=== PATIENT | female | born 1995 | race Caucasian/White ===

== ENCOUNTER 2016-08-30 20:22 | Emergency (ER) | payer MEDICAID ==
[2016-08-30] MEDS ORDERED: LORazepam 1 MG TAB ONE (21:29)
[2016-08-30] MEDS ORDERED: LORazepam 1 MG TAB PO ONE (21:31)
--- NOTE | 2016-08-30 21:33 | EDPHY ---
H & P Stated Complaint: detoxing from heroin /meth and herpes outbreak Time Seen by Provider: 08/30/16 20:55 HPI/ROS: CHIEF COMPLAINT: Agitation after using methamphetamine, also complains of genital herpes outbreak HISTORY OF PRESENT ILLNESS: The patient presents to the ED with complaints of mild agitation and anxiety after using methamphetamine. She also is complaining of a genital herpes outbreak. The patient denies suicidal or homicidal ideation. The patient [facility]. The patient denies any additional acute medical complaints such as fever, cough or congestion. The patient denies any auditory or visual hallucinations. The patient denies abdominal pain, chest pain, difficulty breathing, headache or focal neurologic symptoms. REVIEW OF SYSTEMS: A comprehensive 10 point review of systems is otherwise negative aside from elements mentioned in the history of present illness. - Personal History LMP (Females 10-55): 8-14 Days Ago Current Tetanus/Diphtheria Vaccine: Yes Current Tetanus Diphtheria and Acellular Pertussis (TDAP): Yes - Medical/Surgical History Hx Asthma: No Hx Chronic Respiratory Disease: No Hx Diabetes: No Hx Cardiac Disease: No Hx Renal Disease: No Hx Cirrhosis: No Hx Alcoholism: No Hx HIV/AIDS: No Hx Splenectomy or Spleen Trauma: No Other PMH: heroin /meth abuse - Social History Smoking Status: Current every day smoker Constitutional: Initial Vital Signs Temperature (C) 36.4 C 08/30/16 20:46 Heart Rate 85 08/30/16 20:46 Respiratory Rate 18 08/30/16 20:46 Blood Pressure 132/79 H 08/30/16 20:46 O2 Sat (%) 98 08/30/16 20:46 O2 Delivery Mode Room Air Allergies/Adverse Reactions: No Known Allergies Allergy (Unverified 08/30/16 20:46) Home Medications: Medication Instructions Recorded Acyclovir [Zovirax 400 mg (*)] 400 mg PO TID #21 tab 08/30/16 Medical Decision Making ED Course/Re-evaluation: The patient was given a 1 mg tablet of Ativan for mild anxiety. She is provided a prescription for acyclovir. The patient does not meet criteria for 72 hour mental health hold. The patient will be discharged from the emergency department and return to the [facility]. The patient was given a prepack of Librium per the request of the [facility] for assistance with her narcotic withdrawal. - Data Points Medications Given: Discontinued Medications Chlordiazepoxide (Librium 25 Mg Prepack#6) 1 btl TAKEHOME EDNOW ONE Stop: 08/30/16 21:55 Last Admin: 08/30/16 21:57 Dose: 1 btl Lorazepam (Ativan) 1 mg PO EDNOW ONE Stop: 08/30/16 21:32 Last Admin: 08/30/16 21:32 Dose: 1 mg Departure - Departure Disposition: Home, Routine, Self-Care Instructions: Chlordiazepoxide (By mouth), Narcotic Abuse (ED) Referrals: [facility] [Other] - As per Instructions Prescriptions: Acyclovir [Zovirax 400 mg (*)] 400 mg PO TID #21 tab
[2016-08-30] MEDS ORDERED: CHLORDIAZEPOXIDE 25MG PREPK#6 BTL TAKEHOME ONE (21:54)
[2016-08-30 22:15] VITALS: BP 127/76; PULSE 84; RESP 16; TEMP 98.1; O2SAT 99
== END 2016-08-30 22:15 | disposition home or self-care (01) ==
DX: F19.10 Other psychoactive substance abuse, uncomplicated (principal); A60.09 Herpesviral infection of other urogenital tract; F17.200 Nicotine dependence, unspecified, uncomplicated

== ENCOUNTER 2016-12-27 21:57 | Emergency (ER) | payer MEDICAID ==
--- NOTE | 2016-12-27 22:38 | EDPHY ---
H & P Smoking Status: Current every day smoker Time Seen by Provider: 12/27/16 22:31 HPI/ROS: CHIEF COMPLAINT: Left-sided abdominal pain HISTORY OF PRESENT ILLNESS: Patient has been incarcerated for the last 18 days. She has a history of heroin and methamphetamine but has been clean for the last 2 and half weeks. She presents with left lower abdominal pain for the last 4 days which she says radiates to her back associated with nausea and vomiting for the last 3 hours. No coffee-ground emesis or hematemesis. No urinary or vaginal symptoms. No injury fall or trauma. Denies . Symptoms moderate tonight. Not better worse with oral intake. REVIEW OF SYSTEMS: Eye: no change in vision ENT: no sore throat Cardiac: no chest pain or syncope Pulmonary: no cough or SOB Abdomen: HPI Musculoskeletal: HPI Skin: no rash Neuro: no headache Constitutional: no fever : no urinary symptoms A comprehensive 10 point review of systems is otherwise negative aside from elements mentioned in the history of present illness. PAST MEDICAL HISTORY: Hospitalized for pyelonephritis 6 weeks ago at [facility]. Social history: Recent incarceration as above, no recent alcohol. General Appearance: Alert and conversant, cooperative. Eyes: No scleral icterus. ENT, Mouth: Normal mucous membranes. Respiratory: Normal respiratory effort, breath sounds equal, lungs are clear to auscultation. Cardiovascular: Regular rate and rhythm. Noted to be tachycardic at over 100 beats per minute. Gastrointestinal: Left lower quadrant abdominal tenderness without rebound or guarding. Neurological: Alert and oriented x3. Normally conversant. Face symmetric, normal movement and sensation in all extremities. Skin: Warm and dry, no rashes. No zoster. Musculoskeletal: No peripheral edema and no joint swelling. Psychiatric: Not agitated. Emergency Department course/MDM: Normal saline 1 L IV. Zofran 4 mg IV. We agreed that she would have her abdominal pain treated without opioid medications. Plan for CBC chemistry and test, urinalysis, ultrasound of her left side of her pelvis and kidneys. No upper abdominal pain or tenderness. 2300: Signed out to Dr. Liao with labs and ultrasound pending. (Cyrus Aranda) Constitutional: Initial Vital Signs Temperature (C) 36.7 C 12/27/16 21:59 Heart Rate 126 H 12/27/16 21:59 Respiratory Rate 20 12/27/16 21:59 Blood Pressure 136/85 H 12/27/16 21:59 O2 Sat (%) 96 12/27/16 21:59 O2 Delivery Mode Room Air Allergies/Adverse Reactions: No Known Allergies Allergy (Unverified 08/30/16 20:46) Home Medications: Medication Instructions Recorded Acyclovir [Zovirax 400 mg (*)] 400 mg PO TID #21 tab 08/30/16 Polyethylene Glycol 3350 [Miralax 17 gm PO DAILY #2 pkt 12/28/16 17 gm (*)] Medical Decision Making - Diagnostics Imaging Results: Imaging Impressions Pelvic/Renal Ultrasound 12/27/16 22:36 Impression: 1. Normal ovaries. No ovarian cyst or torsion. 2. Normal uterus. Findings discussed with Emergency Department physician, Dr. Liao at 2016 23:53. ED Course/Re-evaluation: 1206AM: Ultrasound reported to me of the kidneys and ovaries are normal. Unremarkable ultrasound. 1221AM: I did go and re-evaluate the patient she is resting comfortably. Her abdomen is soft nontender. She is feeling better. Ultrasound is unremarkable. Blood work reviewed is unremarkable. She would like to go home. She understands return to the ER she develops worsening abdominal pain fever vomiting. MiraLax prescription provided. (Donovan Liao) Differential Diagnosis: Differential considered including but not limited to pyelonephritis, UTI, ovarian torsion, ovarian cyst, ectopic. (Cyrus Aranda) - Data Points Laboratory Results: Laboratory Results 12/27/16 23:05 12/27/16 23:05 12/27/16 12/27/16 12/27/16 23:05 23:05 23:05 WBC 9.68 10^3/uL H 10^3/uL (3.80-9.50) RBC 4.33 10^6/uL 10^6/uL (4.18-5.33) Hgb 12.6 g/dL g/dL (12.6-16.3) Hct 39.4 % % (38.0-47.0) MCV 91.0 fL fL (81.5-99.8) MCH 29.1 pg pg (27.9-34.1) MCHC 32.0 g/dL L g/dL (32.4-36.7) RDW 14.2 % % (11.5-15.2) Plt Count 306 10^3/uL 10^3/uL (150-400) MPV 10.4 fL fL (8.7-11.7) Neut % (Auto) Not Reported Lymph % (Auto) Not Reported [place] % (Auto) Not Reported Eos % (Auto) Not Reported Baso % (Auto) Not Reported Nucleat RBC Rel Count 0.0 % % (0.0-0.2) Absolute Neuts (auto) Not Reported Absolute Lymphs (auto) Not Reported Absolute Monos (auto) Not Reported Absolute Eos (auto) Not Reported Absolute Basos (auto) Not Reported Absolute Nucleated RBC 0.00 10^3/uL 10^3/uL (0-0.01) Immature Gran % Not Reported Seg Neutrophils % 63 % % Lymphocytes % 35 % % Monocytes % 2 % % Immature Gran # Not Reported Absolute Seg Neuts 6.10 10^/uL 10^/uL (1.70-6.50) Absolute Lymphocytes 3.39 10^3/uL H 10^3/uL (1.00-3.00) Absolute Monocytes 0.19 10^3/uL L 10^3/uL (0.30-0.80) RBC/WBC/PLT Morphology NORMAL (NORMAL) Atypical Lymphocytes 1+ H Platelet Estimate ADEQUATE (ADEQ) Sodium 141 mEq/L mEq/L (134-144) Potassium 4.3 mEq/L mEq/L (3.5-5.2) Chloride 106 mEq/L mEq/L (97-110) Carbon Dioxide 22 mEq/l mEq/l (22-31) Anion Gap 13 mEq/L mEq/L (8-16) BUN 26 mg/dL H mg/dL (7-23) Creatinine 0.8 mg/dL mg/dL (0.6-1.0) Estimated GFR > 60 Glucose 86 mg/dL mg/dL (70-100) Calcium 9.9 mg/dL mg/dL (8.5-10.4) Beta HCG, Qual NEGATIVE Urine Color Urine Appearance Urine pH Ur Specific [place] Urine Protein Urine Ketones Urine Blood Urine Nitrate Urine Bilirubin Urine Urobilinogen Ur Leukocyte Esterase Urine Glucose 12/27/16 22:46 WBC RBC Hgb Hct MCV MCH MCHC RDW Plt Count MPV Neut % (Auto) Lymph % (Auto) [place] % (Auto) Eos % (Auto) Baso % (Auto) Nucleat RBC Rel Count Absolute Neuts (auto) Absolute Lymphs (auto) Absolute Monos (auto) Absolute Eos (auto) Absolute Basos (auto) Absolute Nucleated RBC Immature Gran % Seg Neutrophils % Lymphocytes % Monocytes % Immature Gran # Absolute Seg Neuts Absolute Lymphocytes Absolute Monocytes RBC/WBC/PLT Morphology Atypical Lymphocytes Platelet Estimate Sodium Potassium Chloride Carbon Dioxide Anion Gap BUN Creatinine Estimated GFR Glucose Calcium Beta HCG, Qual Urine Color PALE YELLOW Urine Appearance CLEAR Urine pH 5.0 (5.0-7.5) Ur Specific [place] 1.019 (1.002-1.030) Urine Protein NEGATIVE (NEGATIVE) Urine Ketones NEGATIVE (NEGATIVE) Urine Blood NEGATIVE (NEGATIVE) Urine Nitrate NEGATIVE (NEGATIVE) Urine Bilirubin NEGATIVE (NEGATIVE) Urine Urobilinogen NEGATIVE EU EU (0.2-1.0) Ur Leukocyte Esterase NEGATIVE (NEGATIVE) Urine Glucose NEGATIVE (NEGATIVE) Medications Given: Discontinued Medications Sodium Chloride (Ns) 1,000 mls @ 0 mls/hr IV EDNOW ONE; Wide Open PRN Reason: Protocol Stop: 12/27/16 22:37 Last Admin: 12/28/16 00:09 Dose: 1,000 mls Ketorolac Tromethamine (Toradol) 15 mg IVP EDNOW ONE Stop: 12/28/16 00:06 Last Admin: 12/28/16 00:09 Dose: 15 mg Ondansetron HCl (Zofran) 4 mg IVP EDNOW ONE Stop: 12/27/16 22:37 Last Admin: 12/28/16 00:09 Dose: 4 mg Departure - Departure Disposition: Home, Routine, Self-Care Clinical Impression: Abdominal pain Qualifiers: Abdominal location: left lower quadrant Qualified Code(s): R10.32 - Left lower quadrant pain Constipation Qualifiers: Constipation type: other constipation type Qualified Code(s): K59.09 - Other constipation Condition: Good Instructions: Constipation (ED), Acute Abdominal Pain (ED) Additional Instructions: 1. Drink lots of fluids stay well-hydrated. 2. Return to the ER if there is any worsening symptoms questions or concerns Referrals: [facility] [Other] - As per Instructions Prescriptions: Polyethylene Glycol 3350 [Miralax 17 gm (*)] 17 gm PO DAILY #2 pkt
[2016-12-27 23:08] LABS: COLOR PALE YELLOW; LEUKOCYTE ESTERASE,URINE NEGATIVE (NEGATIVE); NITRITE,URINE NEGATIVE (NEGATIVE)
[2016-12-27 23:14] LABS: ADD MORPH? NO; ADD SCAN? YES; FRAGMENT RBC FLAG 0 (0-99); HEMATOCRIT 39.4 % (38.0-47.0); HEMOGLOBIN 12.6 g/dL (12.6-16.3); LEFT SHIFT FLG 0 (0-99); LIPEMIA HEMOLYSIS FLAG 80 (0-99); MEAN CELL HEMOGLOBIN 29.1 pg (27.9-34.1); MEAN PLATELET VOLUME 10.4 fL (8.7-11.7); PLATELET CLUMPS FLAG 0 (0-99); PLATELET COUNT 306 10^3/uL (150-400); RED BLOOD CELL COUNT 4.33 10^6/uL (4.18-5.33); RED CELL DISTRIBUTION WIDTH 14.2 % (11.5-15.2)
[2016-12-27 23:31] LABS: ATYPICAL LYMPHOCYTE FLAG 130 (0-99)
[2016-12-27 23:37] LABS: ANION GAP 13 mEq/L (8-16); CALCIUM 9.9 mg/dL (8.5-10.4); CARBON DIOXIDE 22 mEq/l (22-31); CHLORIDE 106 mEq/L (97-110); CREATININE 0.8 mg/dL (0.6-1.0); GLOMERULAR FILTRATION RATE > 60; GLUCOSE 86 mg/dL (70-100); POTASSIUM 4.3 mEq/L (3.5-5.2); SODIUM 141 mEq/L (134-144)
[2016-12-27 23:59] LABS: ADD DIFF? YES; SCAN POSITIVE
[2016-12-28 00:03] LABS: PLATELET ESTIMATE ADEQUATE (ADEQ)
[2016-12-28] MEDS ORDERED: KETOROLAC 15 MG/1 ML SDV ONE (00:06)
[2016-12-28] MEDS: NS 1,000 ML IV ONE (00:09)
[2016-12-28] MEDS: ONDANSETRON 4 MG/2 ML VIAL IVP ONE (00:09)
[2016-12-28] MEDS: KETOROLAC 15 MG/1 ML SDV IVP ONE (00:09)
[2016-12-28 00:47] VITALS: BP 119/79; PULSE 95; TEMP 98.4; O2SAT 94
[2016-12-28 01:01] VITALS: RESP 18
== END 2016-12-28 00:58 | disposition home or self-care (01) ==
DX: K59.09 Other constipation (principal); F17.200 Nicotine dependence, unspecified, uncomplicated; E86.9 Volume depletion, unspecified
CPT/HCPCS: 96374; J1885; J2405

== ENCOUNTER 2017-01-09 10:32 | Emergency (ER) | payer MEDICAID ==
[2017-01-09 10:38] VITALS: RESP 16; TEMP 98.1
[2017-01-09] MEDS ORDERED: BENZOCAINE UNIT DOSE SPRAY HURRICAINE MM ONE (11:17)
--- NOTE | 2017-01-09 11:35 | EDPHY ---
H & P Stated Complaint: wisdom teeth extraction at [facility] tuesday/now with pain l upper mout HPI/ROS: CHIEF COMPLAINT: Dental pain, wisdom tooth extraction HISTORY OF PRESENT ILLNESS: Patient complains of left upper sided dental pain. She has wisdom teeth removed on at [facility] and [facility]. She was taking [place] post procedure and doing well until this morning. The pain has become worse. At the left upper side of her mouth. She feels though the stitches came out. No purulence but some drainage. No fever chills. No trismus. No difficulty opening closing the mouth. No painful swallowing. No other associated complaints or modifying factors. REVIEW OF SYSTEMS: Ten systems reviewed and are negative unless otherwise noted in the HPI PCP: None. Dentist is [facility] and [facility] SPECIALISTS: None PAST MEDICAL HISTORY: Depression, anxiety, sleep disorder PAST SURGICAL HISTORY: Was not tooth extraction SOCIAL HISTORY: Smoker. Currently lives in a penitentiary house due to previous heroin and methamphetamine addiction. Two months sober from these FAMILY HISTORY: Noncontributory EXAMINATION General Appearance: Alert, no distress Head: normocephalic, atraumatic ENT, Mouth: Mucous membranes moist. Uvula midline. No erythema or edema of the gums. I do not appreciate any dry sockets of the tooth bed. No abscess. No signs of infection. Airway widely patent. No trismus Neck: Normal inspection, supple, non-tender Respiratory: No retractions or distress Cardiovascular: regular rate and symmetric pulses. Neurological: A&O, nonfocal, normal gait Skin: Warm and dry, no rash. No petechiae or purpura. No ecchymosis. Extremities: Nontender, no pedal edema Psychiatric: Mood and affect normal DIFFERENTIAL DIAGNOSES: Including but not limited to postoperative pain, abscess, dry socket, pulpitis, MDM: 11:05 a.m. Dental pain status post wisdom tooth extraction. I do not appreciate any infection or dry socket. Her pain is mild to severe. Dentist is closed today. No acute distress. I will check her prescription history and offered dental block. 11:30 a.m. Dental block is been applied. She is feeling much better at this time. I do not appreciate signs of infection, but asked her sutures came out of the surgical site I will put her on prophylaxis of penicillin. Unable to contact the dentist as they are closed. She will contact them 1st thing in the morning. ED precautions discussed. She is comfortable this plan and discharged home stable condition Source: Patient Exam Limitations: No limitations - Personal History LMP (Females 10-55): Over 28 Days Ago Current Tetanus/Diphtheria Vaccine: Yes Tetanus Vaccine Date: <10 years - Medical/Surgical History Hx Asthma: No Hx Chronic Respiratory Disease: No Hx Diabetes: No Hx Cardiac Disease: No Hx Renal Disease: No Hx Cirrhosis: No Hx Alcoholism: No Hx HIV/AIDS: No Hx Splenectomy or Spleen Trauma: No Other PMH: heroin /meth abuse - Social History Smoking Status: Current every day smoker Constitutional: Initial Vital Signs Temperature (C) 98.1 F 01/09/17 10:35 Heart Rate 117 H 01/09/17 10:35 Respiratory Rate 16 01/09/17 10:35 Blood Pressure 124/95 H 01/09/17 10:35 O2 Sat (%) 98 01/09/17 10:35 O2 Delivery Mode Room Air Allergies/Adverse Reactions: No Known Allergies Allergy (Verified 01/09/17 10:34) Home Medications: Medication Instructions Recorded CLONAZEPAM 01/09/17 Hydrocodon-Acetaminophen 5-325 01/09/17 Ibuprofen 600 mg PO Q8 PRN #15 tablet 01/09/17 Penicillin V Potassium [Pen Vk 500 mg PO Q6H 10 Days tab 01/09/17 500mg (*)] Seroquel 01/09/17 Medical Decision Making - Data Points Medications Given: Discontinued Medications Benzocaine (Hurricaine [place]) 1 each MM EDNOW ONE Stop: 01/09/17 11:18 Last Admin: 01/09/17 11:22 Dose: 1 each Departure - Departure Disposition: Home, Routine, Self-Care Clinical Impression: Pain, dental, S/P wisdom tooth extraction Condition: Good Instructions: Toothache (ED) Additional Instructions: 1. Ibuprofen 600 mg every 8 hours as needed for pain 2. Penicillin VK as prescribed to completion 3. Follow up with dentist for definitive care 4. ED precautions for worsening pain, trismus, fever, purulence Referrals: [facility] [Other] - As per Instructions Prescriptions: Ibuprofen 600 mg PO Q8 PRN #15 tablet PRN Reason: Pain, Mild Penicillin V Potassium [Pen Vk 500mg (*)] 500 mg PO Q6H 10 Days tab
[2017-01-09 11:46] VITALS: BP 119/65; PULSE 98; O2SAT 99
== END 2017-01-09 11:47 | disposition home or self-care (01) ==
PROC: 3E0X3BZ Introduction of Anesthetic Agent into Cranial Nerves, Percutaneous Approach (ICD-10-PCS; principal; 2017-01-09)
DX: G89.18 Other acute postprocedural pain (principal); K08.89 Other specified disorders of teeth and supporting structures; F17.200 Nicotine dependence, unspecified, uncomplicated

== ENCOUNTER 2017-01-10 14:18 | Emergency (ER) | payer MEDICAID ==
[2017-01-10 14:35] VITALS: BP 134/96; PULSE 92; RESP 14; TEMP 98.6; O2SAT 96
--- NOTE | 2017-01-10 16:21 | EDPHY ---
H & P Time Seen by Provider: 01/10/17 16:10 HPI/ROS: CHIEF COMPLAINT: Here for test, vaginal discharge HISTORY OF PRESENT ILLNESS: 21-year-old female presents for test. Last menstrual period was 6-7 weeks ago, prior to recent incarceration. Today she had a small amount of pinkish discharge and is concerned that she might be . No pelvic pain, fever or history of STD. REVIEW OF SYSTEMS: Constitutional: No fever, no chills Eyes: No drainage ENT: No sore throat Respiratory: No cough, no shortness of breath Cardiac: No chest pain Gastrointestinal: No nausea, no vomiting, no abdominal pain Genitourinary: no dysuria Skin: No rash Past Medical/Surgical History: Denies Smoking Status: Current every day smoker Physical Exam: General Appearance: Alert, pleasant Eyes: Pupils equal and round ENT, Mouth: Mucous membranes moist Neck: Normal inspection Respiratory: Lungs are clear to auscultation Cardiovascular: Regular rate and rhythm Gastrointestinal: Abdomen is soft and nontender Neurological: A&O, nonfocal, normal gait Skin: Warm and dry Psychiatric: Mood and affect normal Constitutional: Initial Vital Signs Temperature (C) 37 C 01/10/17 14:32 Heart Rate 92 01/10/17 14:32 Respiratory Rate 14 01/10/17 14:32 Blood Pressure 134/96 H 01/10/17 14:32 O2 Sat (%) 96 01/10/17 14:32 O2 Delivery Mode Room Air Allergies/Adverse Reactions: No Known Allergies Allergy (Verified 01/09/17 10:34) Home Medications: Medication Instructions Recorded CLONAZEPAM 01/09/17 Ibuprofen 600 mg PO Q8 PRN #15 tablet 01/09/17 Seroquel 01/09/17 Medical Decision Making ED Course/Re-evaluation: Urine test is negative. Dirty urine sent for STD testing. Patient will call in 2 days for test results. Departure - Departure Disposition: Home, Routine, Self-Care Condition: Good Instructions: Vaginal Discharge (ED) Additional Instructions: You are not . Call in 2 days for STD testing results. Referrals: [facility] [Other] - 3-4 days, if not improved
[2017-01-11 12:10] LABS: CHLAMYDIA AMPLIFICATION GENPRB NEGATIVE (NEGATIVE)
== END 2017-01-10 16:30 | disposition home or self-care (01) ==
DX: N89.8 Other specified noninflammatory disorders of vagina (principal); F17.200 Nicotine dependence, unspecified, uncomplicated

== ENCOUNTER 2017-01-15 02:19 | Emergency (ER) | payer MEDICAID ==
[2017-01-15] MEDS ORDERED: NS 1,000 ML IV ONE (02:30)
[2017-01-15 02:55] LABS: % IMMATURE GRANULYOCYTES 0.2 % (0.0-1.1); ABSOLUTE IMMATURE GRANULOCYTES 0.02 10^3/uL (0.00-0.10); ADD DIFF? NO; ADD MORPH? NO; ADD SCAN? NO; ATYPICAL LYMPHOCYTE FLAG 30 (0-99); FRAGMENT RBC FLAG 0 (0-99); HEMATOCRIT 40.4 % (38.0-47.0); HEMOGLOBIN 13.6 g/dL (12.6-16.3); LEFT SHIFT FLG 0 (0-99); LIPEMIA HEMOLYSIS FLAG 80 (0-99); MEAN CELL HEMOGLOBIN 29.1 pg (27.9-34.1); MEAN CELL HEMOGLOBIN CONCENTR. 33.7 g/dL (32.4-36.7); MEAN CELL VOLUME 86.5 fL (81.5-99.8); PLATELET CLUMPS FLAG 10 (0-99); PLATELET COUNT 329 10^3/uL (150-400); RED BLOOD CELL COUNT 4.67 10^6/uL (4.18-5.33); RED CELL DISTRIBUTION WIDTH 13.6 % (11.5-15.2)
--- NOTE | 2017-01-15 02:56 | EDPHY ---
H & P Stated Complaint: vagianal bleeding 2 pads per hour 4 weeks preg HPI/ROS: HPI CHIEF COMPLAINT: , vaginal bleeding, possible miscarriage HISTORY OF PRESENT ILLNESS: This patient very pleasant 21-year-old female, denies any significant medical history she presents emergency room vaginal bleeding. She states on Tuesday. She started having vaginal bleeding. Light spotting. Bleeding got worse yesterday she went to urgent care and had an ultrasound and states that she was not . She presents to the emergency room tonight as she is having further vaginal bleeding. She states 2 pads per hour. Lower pelvic cramping. She is unsure if she is actually . She states she was late on her period. Past Medical History: Denies significant medical history except for herpes Past Surgical History: Denies recent surgical history Social History: Denies daily use of drugs alcohol tobacco products. Family History: Noncontributory ROS REVIEW OF SYSTEMS: A comprehensive 10 point review of systems is otherwise negative aside from elements mentioned in the history of present illness. Exam Constitutional appears well nontoxic, triage nursing summary reviewed, vital signs reviewed, awake/alert. Eyes normal conjunctivae and sclera, EOMI, PERRLA. HENT normal inspection, atraumatic, moist mucus membranes, no epistaxis, neck supple/ no meningismus, no raccoon eyes. Respiratory clear to auscultation bilaterally, normal breath sounds, no respiratory distress, no wheezing. Cardiovascular rate normal, regular rhythm, no murmur, no edema, distal pulses normal. Gastrointestinal soft, non-tender, no rebound, no guarding, normal bowel sounds, no distension, no pulsatile mass. Genitourinary no CVA tenderness. Musculoskeletal no midline vertebral tenderness, full range of motion, no calf swelling, no tenderness of extremities, no meningismus, good pulses, neurovascularly intact. Skin pink, warm, & dry, no rash, skin atraumatic. Neurologic awake, alert and oriented x 3, AAOx3, moves all 4 extremities equally, motor intact, sensory intact, CN II-XII intact, normal cerebellar, normal vision, normal speech. Psychiatric normal mood/affect. Heme/Lymph/Immune no lymphadenopathy. Differential Diagnosis: Includes but is not limited to in a particular order dysfunctional uterine bleeding, threatened AB, complete AB, ectopic Medical Decision Making: Plan for this patient IV establishment with blood draw , check beta quant, check Rh factor, pelvic ultrasound. Re-evaluate. Re-evaluation: Ultrasound of the pelvic for . The results of the study are negative for anything acute.. I discussed the results of this study with the radiologist Dr. Santo [id number]: I did re-evaluate this patient at this time no acute distress resting comfortably. Abdomen is soft nontender. No guarding or peritoneal signs. Ultrasound of the pelvis region does not reveal anything acute. Not . Most likely having dysfunctional uterine bleeding. I have given her return precautions she understands return emergency room she develops worsening abdominal pain fever vomiting severe heavy vaginal bleeding. Blood work has been reviewed urinalysis reviewed test reviewed and ultrasound. Updated patient about results. Source: Patient - Personal History LMP (Females 10-55): Current Tetanus Diphtheria and Acellular Pertussis (TDAP): Yes Tetanus Vaccine Date: <10 years - Medical/Surgical History Hx Asthma: No Hx Chronic Respiratory Disease: No Hx Diabetes: No Hx Cardiac Disease: No Hx Renal Disease: No Hx Cirrhosis: No Hx Alcoholism: No Hx HIV/AIDS: No Hx Splenectomy or Spleen Trauma: No Other PMH: heroin /meth abuse - Social History Smoking Status: Current every day smoker Constitutional: Initial Vital Signs Temperature (C) 36.4 C 01/15/17 02:21 Heart Rate 133 H 01/15/17 02:21 Respiratory Rate 18 01/15/17 02:21 Blood Pressure 139/92 H 01/15/17 02:21 O2 Sat (%) 96 01/15/17 02:21 O2 Delivery Mode Room Air Allergies/Adverse Reactions: No Known Allergies Allergy (Verified 01/09/17 10:34) Home Medications: Medication Instructions Recorded CLONAZEPAM 01/09/17 Ibuprofen 600 mg PO Q8 PRN #15 tablet 01/09/17 Seroquel 01/09/17 Medical Decision Making - Data Points Laboratory Results: Laboratory Results 01/15/17 02:48 01/15/17 02:48 01/15/17 01/15/17 01/15/17 04:00 02:48 02:48 WBC RBC Hgb Hct MCV MCH MCHC RDW Plt Count MPV Neut % (Auto) Lymph % (Auto) Brooke % (Auto) Eos % (Auto) Baso % (Auto) Nucleat RBC Rel Count Absolute Neuts (auto) Absolute Lymphs (auto) Absolute Monos (auto) Absolute Eos (auto) Absolute Basos (auto) Absolute Nucleated RBC Immature Gran % Immature Gran # Sodium Potassium Chloride Carbon Dioxide Anion Gap BUN Creatinine Estimated GFR Glucose Calcium Beta HCG, Qual NEGATIVE Beta HCG, Quant Urine Color YELLOW Urine Appearance HAZY Urine pH 5.0 (5.0-7.5) Ur Specific Joiner 1.018 (1.002-1.030) Urine Protein 1+ H (NEGATIVE) Urine Ketones NEGATIVE (NEGATIVE) Urine Blood 3+ H (NEGATIVE) Urine Nitrate NEGATIVE (NEGATIVE) Urine Bilirubin NEGATIVE (NEGATIVE) Urine Urobilinogen NEGATIVE EU EU (0.2-1.0) Ur Leukocyte Esterase NEGATIVE (NEGATIVE) Urine RBC 50-182 /hpf H /hpf (0-3) Urine WBC 1-3 /hpf /hpf (0-3) Ur Epithelial Cells Not Reported Urine Glucose NEGATIVE (NEGATIVE) Patient ABO/Rh A POSITIVE 01/15/17 01/15/17 02:48 02:48 WBC 8.52 10^3/uL 10^3/uL (3.80-9.50) RBC 4.67 10^6/uL 10^6/uL (4.18-5.33) Hgb 13.6 g/dL g/dL (12.6-16.3) Hct 40.4 % % (38.0-47.0) MCV 86.5 fL fL (81.5-99.8) MCH 29.1 pg pg (27.9-34.1) MCHC 33.7 g/dL g/dL (32.4-36.7) RDW 13.6 % % (11.5-15.2) Plt Count 329 10^3/uL 10^3/uL (150-400) MPV 10.0 fL fL (8.7-11.7) Neut % (Auto) 49.3 % % (39.3-74.2) Lymph % (Auto) 42.0 % % (15.0-45.0) Brooke % (Auto) 7.4 % % (4.5-13.0) Eos % (Auto) 0.6 % % (0.6-7.6) Baso % (Auto) 0.5 % % (0.3-1.7) Nucleat RBC Rel Count 0.0 % % (0.0-0.2) Absolute Neuts (auto) 4.20 10^3/uL 10^3/uL (1.70-6.50) Absolute Lymphs (auto) 3.58 10^3/uL H 10^3/uL (1.00-3.00) Absolute Monos (auto) 0.63 10^3/uL 10^3/uL (0.30-0.80) Absolute Eos (auto) 0.05 10^3/uL 10^3/uL (0.03-0.40) Absolute Basos (auto) 0.04 10^3/uL 10^3/uL (0.02-0.10) Absolute Nucleated RBC 0.00 10^3/uL 10^3/uL (0-0.01) Immature Gran % 0.2 % % (0.0-1.1) Immature Gran # 0.02 10^3/uL 10^3/uL (0.00-0.10) Sodium 139 mEq/L mEq/L (134-144) Potassium 3.6 mEq/L mEq/L (3.5-5.2) Chloride 104 mEq/L mEq/L (97-110) Carbon Dioxide 21 mEq/l L mEq/l (22-31) Anion Gap 14 mEq/L mEq/L (8-16) BUN 12 mg/dL mg/dL (7-23) Creatinine 0.8 mg/dL mg/dL (0.6-1.0) Estimated GFR > 60 Glucose 95 mg/dL mg/dL (70-100) Calcium 10.1 mg/dL mg/dL (8.5-10.4) Beta HCG, Qual Beta HCG, Quant < 2.39 mIU/mL mIU/mL (0.00-4.83) Urine Color Urine Appearance Urine pH Ur Specific Joiner Urine Protein Urine Ketones Urine Blood Urine Nitrate Urine Bilirubin Urine Urobilinogen Ur Leukocyte Esterase Urine RBC Urine WBC Ur Epithelial Cells Urine Glucose Patient ABO/Rh Medications Given: Discontinued Medications Fentanyl (Sublimaze) 50 mcg IVP EDNOW ONE Stop: 01/15/17 03:31 Last Admin: 01/15/17 03:33 Dose: 50 mcg Sodium Chloride (Ns) 1,000 mls @ 0 mls/hr IV EDNOW ONE; Wide Open PRN Reason: Protocol Stop: 01/15/17 02:31 Last Admin: 01/15/17 02:45 Dose: 1,000 mls Oxycodone/Acetaminophen (Percocet 5/325) 1 tab PO EDNOW ONE Stop: 01/15/17 05:06 Last Admin: 01/15/17 05:05 Dose: 1 tab Departure - Departure Disposition: Home, Routine, Self-Care Clinical Impression: Dysfunctional uterine bleeding Condition: Good Instructions: Dysfunctional Uterine Bleeding (ED) Additional Instructions: 1.Return emergency room if he develops worsening symptoms of pain questions or concerns. 2. Please follow up with your doctor and Obgyn. Referrals: [facility] [Other] - As per Instructions
[2017-01-15 03:10] LABS: ANION GAP 14 mEq/L (8-16); CALCIUM 10.1 mg/dL (8.5-10.4); CARBON DIOXIDE 21 mEq/l (22-31); CHLORIDE 104 mEq/L (97-110); CREATININE 0.8 mg/dL (0.6-1.0); GLOMERULAR FILTRATION RATE > 60; GLUCOSE 95 mg/dL (70-100); POTASSIUM 3.6 mEq/L (3.5-5.2); SODIUM 139 mEq/L (134-144)
[2017-01-15] MEDS ORDERED: fentaNYL 100 MCG/2 ML INJ IVP ONE (03:30)
[2017-01-15 04:01] VITALS: RESP 16
[2017-01-15 04:14] LABS: COLOR YELLOW; LEUKOCYTE ESTERASE,URINE NEGATIVE (NEGATIVE); NITRITE,URINE NEGATIVE (NEGATIVE)
[2017-01-15 04:19] LABS: RBC,URINE 50-182 /hpf (0-3)
[2017-01-15] MEDS ORDERED: OXYCODONE/APAP 5/325 TAB ONE (05:03)
[2017-01-15] MEDS ORDERED: OXYCODONE/APAP 5/325 TAB PO ONE (05:05)
[2017-01-15] MEDS ORDERED: HYDROCOD/APAP 5/325 PREPACK#6 BTL TAKEHOME ONE (06:47)
[2017-01-15 07:13] VITALS: BP 118/72; PULSE 82; TEMP 96.8; O2SAT 96
== END 2017-01-15 07:11 | disposition home or self-care (01) ==
PROC: 3E0337Z Introduction of Electrolytic and Water Balance Substance into Peripheral Vein, Percutaneous Approach (ICD-10-PCS; principal; 2017-01-15)
DX: N93.8 Other specified abnormal uterine and vaginal bleeding (principal); E86.9 Volume depletion, unspecified; F17.200 Nicotine dependence, unspecified, uncomplicated
CPT/HCPCS: 96374; J3010